=== PATIENT | female | born 1975 | race Two or more races ===

== ENCOUNTER 2020-09-06 06:30 | Day surgery (SDC) | payer OTHER ==
[~2020-09-06 06:30] MED LIST: COZAAR25 MG PO
== END 2020-09-06 13:30 | disposition home or self-care (01) ==
LOC: CIR.AMB 06:30
PROVIDERS: ATTEND Orthopaedic Surgery
DX: M75.121 Complete rotator cuff tear or rupture of right shoulder, not specified as traumatic (principal); M75.21 Bicipital tendinitis, right shoulder; Z20.822 Contact with and (suspected) exposure to COVID-19

== ENCOUNTER 2021-04-04 06:20 | Day surgery (SDC) | payer OTHER ==
[~2021-04-04 06:20] MED LIST changes: +LEXAPRO5 MG PO
== END 2021-04-04 13:30 | disposition home or self-care (01) ==
LOC: CIR.AMB 06:20
PROVIDERS: ATTEND Orthopaedic Surgery
DX: M75.01 Adhesive capsulitis of right shoulder (principal); M75.21 Bicipital tendinitis, right shoulder; Z88.8 Allergy status to other drugs, medicaments and biological substances